=== PATIENT | male | born 1980 | race Asian ===

== ENCOUNTER 2021-02-17 12:29 | Outpatient (CLI) | payer OTHER, SELFPAY ==
--- NOTE | ~2021-02-17 | XR_ITS ---
XR abdomen/kub 1V 02/17/2021 12:57 Indication: Left ureteral cyst Procedure: KUB Comparison: No prior studies for comparison. Findings: There is a left proximal ureteral stone at the L4 level. There are pelvic phleboliths. Elyssa l gas pattern nonobstructive. No acute osseous abnormality. Impression: 1: Proximal left ureteral stone at the L4 level. Reviewed, dictated and finalized at location A. Impression: 1: Proximal left ureteral stone at the L4 level.
== END 2021-02-17 12:30 | disposition home or self-care (01) ==
PROVIDERS: PCP Family Medicine; Visit Provider Urology
DX: N20.1 Calculus of ureter (principal)
CPT/HCPCS: 74018

== ENCOUNTER → 2021-02-18 08:59 | Outpatient (CLI) | payer OTHER, SELFPAY ==
[2021-02-18 17:40] LABS: SARS-CoV-2 RNA PCR Negative
== END ==
PROVIDERS: PCP Family Medicine; Visit Provider Urology
DX: R68.89 Other general symptoms and signs (principal); Z20.822 Contact with and (suspected) exposure to COVID-19
CPT/HCPCS: C9803; U0003; U0005

== ENCOUNTER 2021-02-19 01:27 | Day surgery (SDC) | payer OTHER, SELFPAY ==
[2021-02-18 09:11] VITALS: BMI 25.8
--- NOTE | 2021-02-18 10:35 | WPDANESEPPF ---
Anes - Initial Pre Proc Eval Procedure: Operation Date: 02/19/21 10:30 Proposed Procedures p Left Extracorporeal Shock Wave Lithotripsy, - Nader Upton MD s Possible Left Ureteroscopy, Stone Extraction, Possible Left Stent Placement - Nader Upton MD s Possible Holmium Laser Procedure - Nader Upton MD Date/Time: 02/18/21 10:35 Surgeon: Nader Upton MD Pre Op Diagnosis: left ureteral kidney stone Patient Data Age: 41 Gender: M Height: 1.75 m Weight: 79.38 kg Allergies Allergy/AdvReac Type Severity Reaction Status Date / Time No Known Allergies Allergy Verified 02/19/21 09:21 Home Medications Medication Instructions Recorded Confirmed Type hydrocodone-acetaminophen 1 tablet PO Q6H PRN 02/18/21 02/19/21 History tamsulosin [Flomax] 0.4 mg PO DAILY 02/18/21 02/19/21 History Patient hx anesthesia problems: none Family hx anesthesia problems: none [facility] Past Medical History Medical History (Updated 02/18/21 @ 10:35 by Rome Mendez DO) Renal stones Social History Social History Smoking status: Never smoker Alcohol intake: never Substance use: never Substance use type: does not use Living arrangements: with family Spiritual care concerns: No Anes - Eval Final PreProcedure Day of Procedure 02/18/21 10:35 Patient weight: overweight Heart: regular rate and rhythm Lungs: clear to auscultation and normal air movement Airway: Mallampati scale class II Neurological: alert and oriented Last oral intake: >/= 8 hours ASA classification: II Emergent: no Anesthetic plan: proceed Anesthesia type and monitoring: general LMA and standard monitoring Informed Consent: The patient's anesthetic plan and its attendant risks and benefits were discussed with the patient/family/POA. Questions were solicited and answers provided to the satisfaction of the patient/family/POA.
[2021-02-19] VITALS (8 sets, daily range): BP systolic 100–142; BP diastolic 71–98; PULSE 66–90; RESP 12–18; TEMP 36.2–36.4; O2SAT 97–100
--- NOTE | ~2021-02-19 | XR_ITS ---
EXAMINATION: XR abdomen/kub 1V INDICATION: Left ureteral stent TECHNIQUE: Supine views of the abdomen were obtained on 2 radiographs. COMPARISON: 02/17/2021 FINDINGS: A 5 mm stone projects in the left mid ureter at the level of the left L4 transverse process . No additional urolithiasis is identified. There are phleboliths of the left pelvis. The bowel gas p attern is normal. The visualized lung bases are clear. IMPRESSION: 1. 5 mm left ureteral stone. Reviewed, dictated and finalized at location D.
[2021-02-19] MEDS: LACTATED RINGERS 1,000 ML 30 ML IV CONT (09:10)
--- NOTE | 2021-02-19 09:10 | WPDHPUPDATE1 ---
History and Physical Update Update Date/Time: 02/19/21 09:10 History and Physical has been reviewed, including an updated exam of the patient. There are NO changes in the patient's condition. Risks, benefits, and alternatives have been discussed and questions answered. Patient agrees to proceed with procedure. Proceed with left ureteral eswl, possible ureteroscopy with retrograde, stone extraction, laser, stent placement
[2021-02-19 09:23] LABS: INR 0.9; Prothrombin Time 12.4 Seconds (11.1-14.7)
[2021-02-19 09:24] LABS: Partial Thromboplastin Time 29.7 SECONDS (22.3-36.8)
[2021-02-19] MEDS: ceFAZolin 2 GM/D5W 50 ML 2 GM/50 ML BAG IVPB (10:43)
--- NOTE | 2021-02-19 11:20 | PM.PROC ---
Procedure Note - Detailed Date of procedure: 02/19/21 Pre-op diagnosis: left ureteral kidney stone Post-op diagnosis: same Procedure performed: Lithotripsy of left ureteral calculus Description of procedure: Patient is taken the operative suite and correctly identified. Once anesthesia was obtained the stone was localized in both planes. Three thousand shocks were given stone. There appeared to be good fragmentation. Patient is taken recovery stable condition. A follow-up in about 7-10 days with KUB. Anesthesia: GLMA Surgeon: Nader Upton MD Drains: No Packing: No Pathology: none sent Complications: No immediate complications Condition: stable Disposition: PACU
--- NOTE | 2021-02-19 12:32 | SUR.PHASEII ---
DR DINERO CALLED RE: NO SCRIPTS FOR KUB AND BACTRIM; OFFICE WILL FAX THEM HERE.
[2021-02-19] MEDS: oxyCODONE HCL (*CRX) 5 MG TAB IR PO (12:43)
--- NOTE | 2021-02-19 17:05 | SUR.PHASEII ---
CORRECTION: I CALLED PATIENT'S CALLED AT 1218 AND NOT AT 1419 WAS CHARTED.
== END 2021-02-19 13:15 | disposition home or self-care (01) ==
PROVIDERS: PCP Family Medicine; Visit Provider Urology
PROC: (CPT 50590; principal; 2021-02-19 10:30)
DX: N20.1 Calculus of ureter (principal)
CPT/HCPCS: 50590; 36415; 74018; 85610; 85730; A9270; J0131; J0690; J1100; J2250; J2370; J2405; J2704; J3010; J7030; J7120

== ENCOUNTER 2021-03-03 12:58 | Outpatient (CLI) | payer OTHER, SELFPAY ==
--- NOTE | ~2021-03-03 | XR_ITS ---
XR abdomen/kub 1V 03/03/2021 13:22 INDICATION: Flank pain TECHNIQUE: KUB COMPARISON: Comparison to multiple prior studies sequentially, with oldest reviewed study dated 02/17. FINDINGS: Bowel gas pattern is normal. There is no evidence of free air, mass, organomegaly, ascites or obstruction. No abnormal calculi are seen. The bones appear intact. IMPRESSION: 1: No acute abdominal abnormality identified. Reviewed, dictated and finalized at location A.
== END 2021-03-03 12:59 | disposition home or self-care (01) ==
LOC: ANHIMG 13:00
PROVIDERS: PCP Family Medicine; Visit Provider Urology
DX: N20.1 Calculus of ureter (principal)
CPT/HCPCS: 74018